=== PATIENT | female | born 1980 ===

== ENCOUNTER 2023-06-20 19:19 | Emergency (ER) | payer SELFPAY ==
[2023-06-20] MEDS: Lidocaine 1% 5 ML VIAL INJECT ONE (20:25)
[2023-06-20] MEDS: Silver Nitrate Applicator Each TOP ONE (20:30)
== END 2023-06-20 20:44 | disposition home or self-care (01) ==
LOC: JP.ED 19:19
DX: S61.011A Laceration without foreign body of right thumb without damage to nail, initial encounter (principal); W26.8XXA Contact with other sharp object(s), not elsewhere classified, initial encounter; Y93.G1 Activity, food preparation and clean up
CPT/HCPCS: 12001; 99282